=== PATIENT | male | born 1950 | race Caucasian/White ===

== ENCOUNTER 2024-04-15 14:15 | Emergency (ER) | payer MEDICARE, OTHER ==
[2024-04-15] MEDS: Meclizine 25 MG Tab PO ONE (15:26)
[2024-04-15] MEDS: Sodium Chloride 0.9% 10 ML Syringe FLUSH ONE (15:46)
[2024-04-15] MEDS: Iopamidol 755 Mg/ML 100 ML Bottle IV SCH (15:46)
[2024-04-15] MEDS: Sodium Chloride 0.9% 100 ML IV SCH (15:46)
[2024-04-15] MEDS: Ketorolac 30 MG/ML SDV IVPUSH ONE (15:56)
[2024-04-15] MEDS: LORazepam 2 MG/ML SDV IVPUSH ONE (17:03)
== END 2024-04-15 17:08 | disposition home or self-care (01) ==
LOC: JP.ED 14:15
DX: F41.9 Anxiety disorder, unspecified (principal)
CPT/HCPCS: 70496; 70498; 96374; 96375; 99284; A9270; J1885; J2060; J3490; Q9967